=== PATIENT | female | born 1980 | race Caucasian/White ===

== ENCOUNTER 2022-04-27 13:19 | Outpatient (CLI) | payer OTHER, SELFPAY ==
--- NOTE | 2022-04-27 13:40 | CRLHL7_ITS ---
For Patients: As a result of the Century Cures Act, medical imaging exams and procedure reports are released immediately into your electronic medical record. You may view this report before your referring provider. If you have questions, please contact your health care provider. BILATERAL SCREENING MAMMOGRAM WITH COMPUTER-AIDED DETECTION AND TOMOSYNTHESIS TECHNIQUE: CC and MLO views were obtained. These mammographic images have been obtained using full-field digital technique. These mammographic images were interpreted with the benefit of computer-aided detection. Breast Tomosynthesis was used in this interpretation. COMPARISON FILM: Baseline. FINDINGS: There are scattered areas of fibroglandular density IMPRESSION: There is no radiographic evidence for malignancy. ASSESSMENT: BI-RADS Category 2: Benign RECOMMENDATION: Routine screening mammogram in 1 year. A lay language report of this examination will be provided to the patient. Jesus You M.D. Diagnostic Radiologist [email or web address] CHAYO/Dictated by: Jesus You MD @ 04/28/2022 8:44:00 AM (Electronically Signed)
== END 2022-04-27 13:20 | disposition home or self-care (01) ==
LOC: MAMMO 13:20
PROVIDERS: Visit Provider Obstetrics & Gynecology
DX: Z12.31 Encounter for screening mammogram for malignant neoplasm of breast (principal); R92.8 Other abnormal and inconclusive findings on diagnostic imaging of breast
CPT/HCPCS: 77063; 77067

== ENCOUNTER 2022-05-27 13:44 | Outpatient (CLI) | payer OTHER, SELFPAY ==
[2022-05-27 10:23] LABS: Cholesterol* 198 mg/dL (90-199); Glucose* 102 mg/dL (60-115); HDL Cholesterol* 37 mg/dL (>=50); LDL Cholesterol Calculated 126 mg/dL (<100); Triglycerides* 175 mg/dL (40-149)
== END 2022-05-27 13:45 | disposition home or self-care (01) ==
PROVIDERS: Visit Provider Obstetrics & Gynecology
DX: Z01.419 Encounter for gynecological examination (general) (routine) without abnormal findings (principal); Z13.6 Encounter for screening for cardiovascular disorders; Z13.1 Encounter for screening for diabetes mellitus
CPT/HCPCS: 80061; 82947

== ENCOUNTER 2023-09-21 08:27 | Outpatient (CLI) | payer BC, SELFPAY | END 2023-09-21 08:28 | disposition home or self-care (01) | LOC: NFLDREF 10:51 | PROVIDERS: Visit Provider Obstetrics & Gynecology | DX: Z01.419 Encounter for gynecological examination (general) (routine) without abnormal findings (principal); N92.0 Excessive and frequent menstruation with regular cycle | CPT/HCPCS: 80061; 84146; 84443 ==

== ENCOUNTER 2023-09-27 14:27 | Outpatient (CLI) | payer BC, SELFPAY ==
--- NOTE | 2023-09-27 14:40 | CRLHL7_ITS ---
For Patients: As a result of the Century Cures Act, medical imaging exams and procedure reports are released immediately into your electronic medical record. You may view this report before your referring provider. If you have questions, please contact your health care provider. BILATERAL SCREENING MAMMOGRAM WITH COMPUTER-AIDED DETECTION AND TOMOSYNTHESIS TECHNIQUE: CC and MLO views were obtained. These mammographic images have been obtained using full-field digital technique. These mammographic images were interpreted with the benefit of computer-aided detection. Breast Tomosynthesis was used in this interpretation. COMPARISON FILM: 04/27/22. FINDINGS: There are scattered areas of fibroglandular density IMPRESSION: There is no radiographic evidence for malignancy. ASSESSMENT: BI-RADS Category 1: Negative RECOMMENDATION: Routine screening mammogram in 1 year. A lay language report of this examination will be provided to the patient. Jesus You M.D. Diagnostic Radiologist [email or web address] CHAYO/Dictated by: Jesus You MD @ 09/28/2023 12:13:00 PM (Electronically Signed)
== END 2023-09-27 14:28 | disposition home or self-care (01) ==
LOC: MAMMO 14:27
PROVIDERS: Visit Provider Obstetrics & Gynecology
DX: Z12.31 Encounter for screening mammogram for malignant neoplasm of breast (principal)
CPT/HCPCS: 77063; 77067

== ENCOUNTER 2023-09-28 09:32 | Outpatient (CLI) | payer BC, SELFPAY ==
--- NOTE | 2023-09-28 09:45 | CRLHL7_ITS ---
For Patients: As a result of the Century Cures Act, medical imaging exams and procedure reports are released immediately into your electronic medical record. You may view this report before your referring provider. If you have questions, please contact your health care provider. INDICATION: Abnormal uterine bleeding COMPARISON: none TECHNIQUE: 2D gomes scale and color Doppler images were acquired of the pelvis using a transabdominal and transvaginal approach. FINDINGS: Sonographic images demonstrate a normal size and smooth outer contour of the uterus. Uterus measures 9.3 cm in length by 4.6 cm in AP diameter by 6.1 cm in transverse dimension. The myometrium has a normal uniform echotexture. The endometrial lining appears heterogeneous and measures 11 mm in composite thickness. The right ovary measures 3.7 x 1.4 x 2.7 cm in size and the left ovary measures 3.4 x 1.4 x 1.2 cm. The ovaries demonstrate normal arterial and venous blood flow on color Doppler analysis. There are no suspicious fluid collections within the cul-de-sac. IMPRESSION: Heterogeneous endometrium measuring 11 millimeters. Dictated by Jesus You MD @ 09/28/2023 10:31:03 AM (Electronically Signed)
== END 2023-09-28 09:33 | disposition home or self-care (01) ==
LOC: US 09:32
PROVIDERS: Visit Provider Obstetrics & Gynecology
DX: N92.0 Excessive and frequent menstruation with regular cycle (principal); R93.89 Abnormal findings on diagnostic imaging of other specified body structures
CPT/HCPCS: 76830; 76856

== ENCOUNTER 2025-04-28 09:49 | Outpatient (CLI) | payer BC, SELFPAY ==
[2025-05-02 00:33] LABS: HPV Source Cervix
[2025-05-05 14:17] LABS: Pap Test Screened Manually Done
== END 2025-04-28 09:50 | disposition home or self-care (01) ==
PROVIDERS: Visit Provider Obstetrics & Gynecology
DX: Z12.4 Encounter for screening for malignant neoplasm of cervix (principal); Z11.51 Encounter for screening for human papillomavirus (HPV)
CPT/HCPCS: 87624; 87625; 88141; 88142; 88175

== ENCOUNTER 2025-04-30 08:37 | Outpatient (CLI) | payer BC, SELFPAY | END 2025-04-30 08:38 | disposition home or self-care (01) | LOC: NFLDREF 05-05 16:50 | PROVIDERS: Visit Provider Obstetrics & Gynecology | DX: E78.5 Hyperlipidemia, unspecified (principal); N93.9 Abnormal uterine and vaginal bleeding, unspecified; E66.9 Obesity, unspecified | CPT/HCPCS: 80061; 82670; 83001; 83002; 84443 ==

== ENCOUNTER 2025-05-21 07:44 | Day surgery (SDC) | payer BC, SELFPAY ==
[2025-05-21 07:50] VITALS: BMI 37.9
[2025-05-21 08:24] LABS: Hemoglobin* 14.6 gm/dL (12.0-16.0)
[2025-05-21 08:30] VITALS: BP 105/66; PULSE 68; RESP 14; O2SAT 97
[2025-05-21] MEDS: SODIUM CHLORIDE 0.9 % (FLUSH) 10 ML SYRINGE IVF (08:32)
[2025-05-21] MEDS: LACTATED RINGERS 500 ML 500 ML 75 ML IV (08:32)
[2025-05-21 08:40] LABS: Creatinine* 0.7 mg/dL (0.5-1.5); Est. Creatinine Clearance* 88.56; Estimated Glomerular Filt Rate 109 ml/min
--- NOTE | 2025-05-21 09:00 | W.PM.H&PU ---
History & Physical Update History & Physical Update H&P Updates: Some vaginal spotting after last pap smear which was expected but otherwise no other interval changes
[2025-05-21] MEDS: LIDOCAINE 1%-EPI 1:100,000 20 ML INFILTRATI (09:35)
[2025-05-21] MEDS: LACTATED RINGERS 1000 ML 1,000 ML 100 ML IV (09:48)
--- NOTE | 2025-05-21 09:53 | SUR.OPER ---
155 ml fluid deficit, MD aware of deficit.
--- NOTE | 2025-05-21 09:59 | P.ANES_ITS ---
Anesthesia Charges Start Date/Time Anesthesia Start Date: 05/21/25 Anesthesia Start Time: 09:12 Stop Date/Time Anesthesia Stop Date: 05/21/25 Anesthesia Stop Time: 09:55 Coding CPT Codes CPT Codes: ANESTH HYSTEROSCOPE/GRAPH - 36940 ([id number]) P2 - PATIENT W/MILD SYST DISEASE, QK - QUALITY ASSURANCE ANALYST 2-4 CNCRNT ANES PROC, QX - MACHINE OPERATOR PACKAGING SVC W/ MD MED DIRECTION
--- NOTE | 2025-05-21 09:59 | P.ANES_ITS ---
Anesthesia Charges Start Date/Time Anesthesia Start Date: 05/21/25 Anesthesia Start Time: 09:12 Stop Date/Time Anesthesia Stop Date: 05/21/25 Anesthesia Stop Time: 09:55 Coding CPT Codes CPT Codes: ANESTH HYSTEROSCOPE/GRAPH - 68380 ([id number]) P2 - PATIENT W/MILD SYST DISEASE, QK - ASSISTANT PROFESSOR OF ENGLISH 2-4 CNCRNT ANES PROC, QX - PAYLOADER OPERATOR SVC W/ MD MED DIRECTION
--- NOTE | 2025-05-21 09:59 | W.ANESCHARGE ---
Anesthesia Charges Start Date/Time Anesthesia Start Date: 05/21/25 Anesthesia Start Time: 09:12 Stop Date/Time Anesthesia Stop Date: 05/21/25 Anesthesia Stop Time: 09:55 Coding CPT Codes CPT Codes: ANESTH HYSTEROSCOPE/GRAPH - 59516 ([id number]) P2 - PATIENT W/MILD SYST DISEASE, QK - PHLEBOTOMIST LAB ASSISTANT 2-4 CNCRNT ANES PROC, QX - WHARFMASTER SVC W/ MD MED DIRECTION
--- NOTE | 2025-05-21 09:59 | W.ANESCHARGE ---
Anesthesia Charges Start Date/Time Anesthesia Start Date: 05/21/25 Anesthesia Start Time: 09:12 Stop Date/Time Anesthesia Stop Date: 05/21/25 Anesthesia Stop Time: 09:55 Coding CPT Codes CPT Codes: ANESTH HYSTEROSCOPE/GRAPH - 82409 ([id number]) P2 - PATIENT W/MILD SYST DISEASE, QK - HEART DOCTOR 2-4 CNCRNT ANES PROC, QX - BAND INSTRUMENT REPAIRER SVC W/ MD MED DIRECTION
[2025-05-21 10:00] VITALS: BP 111/71; PULSE 99; RESP 16; TEMP 36.8; O2SAT 94
--- NOTE | 2025-05-21 10:04 | W.PM.GYNPROC ---
Procedure Note Time Seen by Provider: 09:00 Date of procedure: 05/21/25 Will [facility] bill your pro fee for this procedure?: Yes Procedure Description: Preoperative diagnosis: Radha is a 45 year-old with prolapsing polyp. Postoperative diagnosis: Prolapsing endometrial/cervical polyp Procedure: Hysteroscopy, curettage and polypectomy Anesthesia: Conscious sedation with paracervical block. Surgeon:Teagan Edwards MD Estimated blood loss: <5 mL UOP: 35 mL, clear IVF: 500 mL Specimen: Prolapsing polyp and endometrial curetting Findings: Exam under anesthesia: Cervix with 1.5 cm prolapsing polyp noted. Uterus: anteverted position, 6 week size, mobile, without nodularity/masses palpable. Adnexa were without fullness or nodularity. On hysteroscopy: Polyp stalk appeared to be at the endocervical junction. Normal bilateral tubal ostia. Hypervascular endometrium. Polyps noted at left posterior endometrium. Procedure: Radha was taken to the operating where conscious sedation was found to be adequate. She was placed in the dorsal lithotomy position. An exam under anesthesia was performed with findings stated above. She was then prepped and draped in normal sterile manner. A bivalve metal speculum was placed in the vaginal canal. A paracervical block was placed using 1% lidocaine with epinephrine: 5 mL injected at the 4 and 8 o'clock positions on the cervix. The anterior lip of the cervix was then grasped with a long tenaculum. Ring forceps used to perform polypectomy by rotating circumferential until prolapsing polyp is detached. The cervix was then noted to be approximately 1 cm dilated. The uterus sounded to 7 cm. The hysteroscope advanced into the uterus and a diagnostic hysteroscopy was performed with findings stated above. Normal saline was used as the insufflation medium. Soft tissue shaver was used to perform polypectomy and global curetting. The uterus and documented a normal appearing uterine cavity at the end of the procedure. Fluid deficit at the end of the procedure 155mL. Total fluid: 1700mL The hysteroscope and tenaculum clamp were removed from the uterus and cervix. Excellent hemostasis noted. Nothing was used for hemostasis. The patient tolerated the procedure well. Sponge, lap and instruments counts were correct at the end of the procedure. The patient was awakened from anesthesia and taken to the recovery area in stable condition. Surgical debrief performed and specimen reviewed at the end of the procedure.
[2025-05-21 10:15] VITALS: BP 97/59; PULSE 87; RESP 16; O2SAT 93
[2025-05-21 10:30] VITALS: BP 93/68; PULSE 72; RESP 16; O2SAT 93
== END 2025-05-21 10:51 | disposition home or self-care (01) ==
LOC: OR 07:45
PROVIDERS: Visit Provider Obstetrics & Gynecology
PROC: 0UDB8ZZ Extraction of Endometrium, Via Natural or Artificial Opening Endoscopic (ICD-10-PCS; CPT 58558; principal; 2025-05-21 09:00)
DX: N84.0 Polyp of corpus uteri (principal); N84.1 Polyp of cervix uteri; N92.0 Excessive and frequent menstruation with regular cycle; E66.811 Obesity, class 1; Z68.37 Body mass index [BMI] 37.0-37.9, adult
CPT/HCPCS: 58558; 00952; 36415; 81025; 82565; 85018; 86850; 86900; 86901; 88305; C1782; J1100; J1885; J2250; J2405; J2704; J3010; J3490; J7120

== ENCOUNTER 2025-08-08 12:50 | Outpatient (CLI) | payer BC, SELFPAY ==
--- NOTE | 2025-08-08 13:00 | CRLHL7_ITS ---
For Patients: As a result of the Century Cures Act, medical imaging exams and procedure reports are released immediately into your electronic medical record. You may view this report before your referring provider. If you have questions, please contact your health care provider. INDICATION: BILATERAL SCREENING MAMMOGRAM, ASYMPTOMATIC 45 Y/O FEMALE COMPARISON: 09/27/2023, 04/27/2022 TECHNIQUE: Digital mammogram in CC and MLO projections including computer-aided detection (CAD) and tomosynthesis. BREAST COMPOSITION: There are scattered areas of fibroglandular density. FINDINGS: No suspicious findings. ASSESSMENT: BI-RADS 2 Benign RECOMMENDATION: Annual screening mammogram. A lay language report of this examination will be provided to the patient. Dictated by: Jesus You MD @ 08/11/2025 12:31:21 (Electronically Signed)
== END 2025-08-08 12:51 | disposition home or self-care (01) ==
LOC: MAMMO 12:50
PROVIDERS: PCP Internal Medicine; Visit Provider Obstetrics & Gynecology
DX: Z12.31 Encounter for screening mammogram for malignant neoplasm of breast (principal)
CPT/HCPCS: 77063; 77067